=== PATIENT | male | born 1950 | race Caucasian/White ===

== ENCOUNTER 2024-05-16 07:47 | Day surgery (SDC) | payer MEDICARE, OTHER ==
[2024-05-16] MEDS ORDERED: propofoL 50 ML ONE (08:14)
[2024-05-16] MEDS: Lactated Ringers 1,000 ML IV SCH (08:20)
== END 2024-05-16 10:39 | disposition home or self-care (01) ==
LOC: MW.SDS 07:47
PROVIDERS: ATTEND Surgery
DX: Z12.11 Encounter for screening for malignant neoplasm of colon (principal); D12.6 Benign neoplasm of colon, unspecified; K57.30 Diverticulosis of large intestine without perforation or abscess without bleeding; I10 Essential (primary) hypertension; J44.9 Chronic obstructive pulmonary disease, unspecified; E78.00 Pure hypercholesterolemia, unspecified; Z79.899 Other long term (current) drug therapy; Z88.0 Allergy status to penicillin
CPT/HCPCS: 45385; 88305; J2704; J7120; 00811; 99100